=== PATIENT | female | born 1995 | race Two or more races ===

== ENCOUNTER 2020-10-26 09:24 | Emergency (ER) | payer MEDICAID ==
[~2020-10-26] VITALS: Ht 160 cm; Wt 101.8 kg
--- NOTE | 2020-10-26 10:09 | NUR ---
patient educated on poc (need for ua maddy) Patient will try to void now
[2020-10-26 10:47] LABS: BASOPHILS % (AUTO) 0 % (0-1); EOSINOPHILS % (AUTO) 0 % (1-7); LYMPHOCYTES % (AUTO) 14 % (22-44); MEAN CORPUSCULAR HEMOGLOBIN 29.6 pg (27.0-34.8); MEAN CORPUSCULAR HGB CONC 34.1 g/dL (32.4-35.8); MEAN PLATELET VOLUME 8.8 fL (7.4-10.4); MONOCYTES % (AUTO) 4 % (2-9); NEUTROPHILS % (AUTO) 82 % (42-75); PLATELET COUNT 227 x10^3/uL (130-400); RED BLOOD COUNT 3.92 x10^6/uL (3.82-5.3); RED CELL DISTRIBUTION WIDTH 13.8 % (9.6-15.2)
[2020-10-26 10:59] LABS: ALBUMIN 2.7 g/dL (3.4-5.0); ANION GAP 7 mmol/L (5-15); CALCIUM 8.6 mg/dL (8.5-10.1); CHLORIDE 111 mmol/L (98-107); CREATININE 0.53 mg/dL (0.55-1.02)
[2020-10-26 11:06] LABS: MICROSCOPIC INDICATED
[2020-10-26 11:16] LABS: MD SCAN
[2020-10-26 12:07] VITALS: BP 127/79
== END 2020-10-26 12:10 | disposition home or self-care (01) ==
LOC: ED 11:13
DX: O26.892 Other specified pregnancy related conditions, second trimester (principal); R42 Dizziness and giddiness; R10.9 Unspecified abdominal pain; O21.8 Other vomiting complicating pregnancy; Z3A.25 25 weeks gestation of pregnancy
CPT/HCPCS: 36415; 80048; 81001; 82040; 85025; 87086; 93005; 99284

== ENCOUNTER 2021-01-15 12:17 | Outpatient (CLI) | payer MEDICAID ==
[~2021-01-15] VITALS: Ht 160 cm; Wt 110.0 kg
[2021-01-15 12:47] LABS: BASOPHILS % (AUTO) 1 % (0-1); EOSINOPHILS % (AUTO) 0 % (1-7); LYMPHOCYTES % (AUTO) 16 % (22-44); MD NO; MEAN CORPUSCULAR HEMOGLOBIN 26.3 pg (27.0-34.8); MONOCYTES % (AUTO) 7 % (2-9); NEUTROPHILS % (AUTO) 76 % (42-75); PLATELET COUNT 245 x10^3/uL (130-400); RED BLOOD COUNT 3.93 x10^6/uL (3.82-5.3)
[2021-01-15 12:57] LABS: ALANINE AMINOTRANSFERASE 13 U/L (12-78); ALBUMIN 2.3 g/dL (3.4-5.0); ANION GAP 7 mmol/L (5-15); CALCIUM 8.5 mg/dL (8.5-10.1); CHLORIDE 109 mmol/L (98-107); CREATININE 0.46 mg/dL (0.55-1.02)
[2021-01-15 12:58] LABS: BILIRUBIN, DIRECT < 0.1 mg/dL (0.1-0.2)
[2021-01-15 12:59] LABS: ALKALINE PHOSPHATASE 136 U/L (45-117); BILIRUBIN,TOTAL 0.1 mg/dL (0.2-1.0); TOTAL PROTEIN 6.3 g/dL (6.4-8.2)
[2021-01-15 13:53] LABS: MICROSCOPIC INDICATED
== END 2021-01-15 13:49 | disposition home or self-care (01) ==
LOC: LDOP 12:17
PROVIDERS: ATTEND Obstetrics & Gynecology
DX: O16.3 Unspecified maternal hypertension, third trimester (principal); Z3A.37 37 weeks gestation of pregnancy
CPT/HCPCS: 36415; 59025; 80053; 81001; 82248; 82570; 84156; 84550; 85025

== ENCOUNTER 2021-02-01 07:17 | Inpatient (IN) | payer MEDICAID ==
[~2021-02-01] VITALS: Ht 162.6 cm; Wt 105.0 kg
[2021-02-01] MEDS ORDERED: NEWBORN KIT ONE (10:51)
[2021-02-01] MEDS ORDERED: LIDOCAINE 1%, 20ML ONE (10:51)
[2021-02-01] MEDS ORDERED: MISOPROSTOL 200 MCG TABLET ONE (10:51)
[2021-02-01 10:57] LABS: BASOPHILS % (AUTO) 1 % (0-1); EOSINOPHILS % (AUTO) 1 % (1-7); LYMPHOCYTES % (AUTO) 14 % (22-44); MEAN CORPUSCULAR HEMOGLOBIN 24.8 pg (27.0-34.8); MEAN CORPUSCULAR HGB CONC 32.9 g/dL (32.4-35.8); MONOCYTES % (AUTO) 7 % (2-9); NEUTROPHILS % (AUTO) 78 % (42-75); PLATELET COUNT 220 x10^3/uL (130-400); RED BLOOD COUNT 4.12 x10^6/uL (3.82-5.3); RED CELL DISTRIBUTION WIDTH 14.4 % (9.6-15.2)
[2021-02-01 10:58] LABS: MD NO
[2021-02-01] MEDS ORDERED: MISOPROSTOL 25 MCG TABLET VG PRN (11:00)
[2021-02-01] MEDS ORDERED: OXYTOCIN 30U/ 0.9% NaCL 500ML 500 ML IV PRN ×2 (11:00→11:30)
[2021-02-01] MEDS ORDERED: PLEASE ENTER HEIGHT AND WEIGHT MC SCH (11:00)
[2021-02-01] MEDS ORDERED: ONDANSETRON 2MG/ML, 2ML IVPush PRN ×2 (11:00→16:30)
[2021-02-01] MEDS ORDERED: ALUMINUM/MAG/SIMETHICONE 30 ML UDC PO PRN (11:00)
[2021-02-01] MEDS ORDERED: FENTANYL PF 100 MCG/2ML IVPush PRN (11:00)
[2021-02-01] MEDS ORDERED: OXYTOCIN 30U/ 0.9% NaCL 500ML 500 ML IV ONE (11:00)
[2021-02-01] MEDS ORDERED: CALCIUM CARBONATE 500 MG TAB.CHEW PO PRN (11:00)
[2021-02-01] MEDS ORDERED: TERBUTALINE 1 MG/ML, 1ML IVPush PRN (11:00)
[2021-02-01] MEDS ORDERED: SODIUM CHLORIDE FLUSH 10ML SYR IVF PRN (11:00)
[2021-02-01] MEDS ORDERED: SODIUM CITRATE/CITRIC ACID 30 ML UDC PO PRN (11:00)
[2021-02-01] MEDS ORDERED: D5%-LACTATED RINGERS 1,000 ML IV SCH (11:00)
[2021-02-01] MEDS ORDERED: LACTATED RINGERS 1,000 ML IV SCH ×2 (11:00→16:30)
[2021-02-01] MEDS ORDERED: TERBUTALINE 1 MG/ML, 1ML SQ PRN (11:00)
[2021-02-01] MEDS ORDERED: FENTANYL/BUPIV./NS/PF 250 ML EPIDCONT ONE (15:41)
[2021-02-01] MEDS ORDERED: BUPIVACAINE 0.25% ONE (15:41)
[2021-02-01] MEDS ORDERED: DIPHENHYDRAMINE 50 MG/ML, 1ML IVPush PRN (16:30)
[2021-02-01] MEDS ORDERED: FENTANYL/BUPIV./NS/PF 250 ML EPIDCONT SCH (16:30)
[2021-02-01] MEDS ORDERED: EPHEDRINE 50 MG/ML, 1ML IVPush PRN (16:30)
[2021-02-01] MEDS ORDERED: LACTATED RINGERS 1,000 ML IVBOLUS PRN (16:30)
[2021-02-01] MEDS ORDERED: NALOXONE 0.4 MG/ML, 1ML IVPush PRN (16:30)
[2021-02-01 19:12] VITALS: BP 138/61
[2021-02-01] MEDS ORDERED: ACETAMINOPHEN 500 MG TABLET PO ONE (23:00)
[2021-02-01] MEDS ORDERED: CLINDAMYCIN PMX 900MG/50ML 50 ML IV SCH (23:00)
[2021-02-01] MEDS ORDERED: GENTAMICIN PER PHARMACY MC PRN (23:00)
[2021-02-01] MEDS ORDERED: CEFAZOLIN 2,000 MG in DEXTROSE 5% 50 ML IV SCH (23:00)
[2021-02-01] MEDS ORDERED: PHARMACOKINETIC MONITORING MC PRN (23:30)
[2021-02-01] MEDS ORDERED: PHARMACOKINETIC CONSULTATION MC ONE (23:30)
[2021-02-01] MEDS ORDERED: GENTAMICIN 140 MG in SODIUM CHLORIDE 0.9% 50 ML IV SCH (23:30)
[2021-02-02] MEDS ORDERED: ONDANSETRON 2MG/ML, 2ML IV PRN (02:00)
[2021-02-02] MEDS ORDERED: RHOGAM FROM BLOOD BANK 1 NOTE EA IM/IV ONE (02:00)
[2021-02-02] MEDS ORDERED: OXYcodone/APAP 5/325MG TABLET PO PRN (02:00)
[2021-02-02] MEDS ORDERED: HYDROcodone/APAP 5/325 TABLET PO PRN (02:00)
[2021-02-02] MEDS ORDERED: IBUPROFEN 800 MG TABLET PO PRN (02:00)
[2021-02-02] MEDS ORDERED: MISOPROSTOL 200 MCG TABLET PR PRN (02:00)
[2021-02-02] MEDS ORDERED: BISACODYL 10 MG SUPP PR PRN (02:00)
[2021-02-02] MEDS ORDERED: IBUPROFEN 200 MG TABLET PO PRN (02:00)
[2021-02-02] MEDS ORDERED: DOCUSATE 100 MG CAPSULE PO PRN (02:00)
[2021-02-02] MEDS ORDERED: ACETAMINOPHEN 325 MG TABLET PO PRN (02:00)
[2021-02-02 04:15] VITALS: BP 120/72
[2021-02-02] MEDS: OXYTOCIN 30U/ 0.9% NaCL 500ML 500 ML IV SCH ×3 (05:33→22:00)
[2021-02-02] MEDS ORDERED: CEFAZOLIN 2,000 MG in DEXTROSE 5% 50 ML IV SCH (07:00)
[2021-02-02 07:30] VITALS: BP 104/69
[2021-02-02] MEDS: PRENATAL VIT/IRON/FA 1 EACH TABLET PO SCH (08:57)
[2021-02-02 09:23] LABS: MEAN CORPUSCULAR HEMOGLOBIN 24.6 pg (27.0-34.8); MEAN CORPUSCULAR HGB CONC 32.7 g/dL (32.4-35.8); MEAN PLATELET VOLUME 8.6 fL (7.4-10.4); PLATELET COUNT 224 x10^3/uL (130-400); RED BLOOD COUNT 4.13 x10^6/uL (3.82-5.3); RED CELL DISTRIBUTION WIDTH 14.7 % (9.6-15.2)
[2021-02-02 09:47] LABS: MD YES
[2021-02-02 09:49] LABS: <PLATELET ESTIMATE> ADEQUATE; <PLT MORPHOLOGY> NORMAL PLT MORPH; LYMPH#(MANUAL) 2.04 x10^3/uL (1-3.4); LYMPHS% (MANUAL) 8 % (22-44); MICROCYTOSIS 1+; MONOS#(MANUAL) 0.77 x10^3/uL (0.3-2.7); MONOS% (MANUAL) 3 % (2-9); SEGS% (MANUAL) 89 % (42-75)
[2021-02-02 11:40] VITALS: BP 114/80
[2021-02-02 15:42] VITALS: BP 119/84
[2021-02-02 19:30] VITALS: BP 123/88
[2021-02-03 00:50] VITALS: BP 119/82
[2021-02-03 08:00] VITALS: BP 111/76
[2021-02-03] MEDS: OXYTOCIN 30U/ 0.9% NaCL 500ML 500 ML IV SCH ×2 (08:00→18:00)
[2021-02-03] MEDS: PRENATAL VIT/IRON/FA 1 EACH TABLET PO SCH (09:00)
[2021-02-03] MEDS ORDERED: IBUP-1222 PO (09:25)
[2021-02-03] MEDS ORDERED: DOCU-131 PO (09:25)
[2021-02-03 19:10] VITALS: BP 121/84
[2021-02-04] MEDS: OXYTOCIN 30U/ 0.9% NaCL 500ML 500 ML IV SCH (04:00)
[2021-02-04 07:10] VITALS: BP 133/83
[2021-02-04] MEDS: PRENATAL VIT/IRON/FA 1 EACH TABLET PO SCH (09:00)
== END 2021-02-04 11:10 | disposition home or self-care (01) | DRG 560 ==
LOC: LDIP 09:57 → 2NW 02-02 03:35
PROVIDERS: ADMIT Obstetrics & Gynecology; ATTEND Obstetrics & Gynecology
PROC: 10E0XZZ Delivery of Products of Conception, External Approach (ICD-10-PCS; principal; 2021-02-02)
PROC: 10H07YZ Insertion of Other Device into Products of Conception, Via Natural or Artificial Opening (ICD-10-PCS; 2021-02-02)
PROC: 10907ZC Drainage of Amniotic Fluid, Therapeutic from Products of Conception, Via Natural or Artificial Opening (ICD-10-PCS; 2021-02-02)
PROC: 3E0R3BZ Introduction of Anesthetic Agent into Spinal Canal, Percutaneous Approach (ICD-10-PCS; 2021-02-02)
PROC: 00HU33Z Insertion of Infusion Device into Spinal Canal, Percutaneous Approach (ICD-10-PCS; 2021-02-02)
PROC: 0HQ9XZZ Repair Perineum Skin, External Approach (ICD-10-PCS; 2021-02-02)
PROC: 0WBNXZX Excision of Female Perineum, External Approach, Diagnostic (ICD-10-PCS; 2021-02-02)
DX: O69.81X0 Labor and delivery complicated by cord around neck, without compression, not applicable or unspecified (principal); O41.1030 Infection of amniotic sac and membranes, unspecified, third trimester, not applicable or unspecified; O70.0 First degree perineal laceration during delivery; Z20.822 Contact with and (suspected) exposure to COVID-19; Z37.0 Single live birth; Z3A.39 39 weeks gestation of pregnancy; Z82.49 Family history of ischemic heart disease and other diseases of the circulatory system; Z88.0 Allergy status to penicillin
CPT/HCPCS: 36415; 85025; 86592; 86850; 86900; 87635; 88305; G0378; J0690; J1580; J2590; J3010